=== PATIENT | female | born 1965 | race Caucasian/White ===

== ENCOUNTER 2017-05-02 09:28 | Observation (INO) | payer MEDICARE, MEDICAID ==
[2017-04-27 10:12] VITALS: BMI 25.4
[2017-05-03 08:23] VITALS: BP 110/63; RESP 18; TEMP 98.2; O2SAT 95
[2017-05-03 14:08] VITALS: PULSE 88
== END 2017-05-03 13:14 | disposition home or self-care (01) ==
LOC: C.SDS 09:28 → C.9S 17:39 → C.6T 19:01
PROVIDERS: ADMIT Hospitalist; ATTEND Hospitalist
DX: J32.0 Chronic maxillary sinusitis (principal); J32.1 Chronic frontal sinusitis; J32.2 Chronic ethmoidal sinusitis; J33.9 Nasal polyp, unspecified; R04.0 Epistaxis
CPT/HCPCS: 31255; 31256; 31276; 31288; 36415; 71010; 80048; 80053; 84484; 85025; 85027; 88304; 93005; G0378; J0690; J1170; J2250; J2405; J2704; J3010; J7042; J7120